=== PATIENT | female | born 1980 | race Caucasian/White ===

== ENCOUNTER → 2017-08-17 | Outpatient (CLI) | payer BC | END | disposition home or self-care (01) | LOC: OIH 11:49 | PROVIDERS: ATTEND Family Medicine | DX: M25.462 Effusion, left knee (principal) | CPT/HCPCS: 73562 ==

== ENCOUNTER → 2025-04-12 | Outpatient (CLI) | payer BC ==
[~2025-04-12] MED LIST: GADOTERATE MEGLUMINE 5 MMOL/10 ML VIAL IV ONE
--- NOTE | 2025-04-14 10:04 | HMCIMG ---
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 TECHNIQUE: Multiplanar multi-sequence MRI of the brain and orbit with and without contrast. COMPARISON: None provided. FINDINGS: Brain: No abnormal parenchymal signal is present. No evidence of acute cortical infarction, hemorrhage, mass or mass effect. The ventricular system is normal in size, shape, and contour. No hydrocephalus. No abnormal extra-axial fluid collection is present. The marrow signal within the skull base and calvarium is intact. The mastoid air cells are clear. Mild to moderate polypoidal mucosal thickening in the left frontal, bilateral anterior ethmoid, right maxillary and left sphenoid sinuses. Orbits: The bilateral eye globes, optic nerves, orbital apex, optic chiasm and optic tracts are within normal limits. The bilateral extraocular muscles and retro-orbital fat are grossly unremarkable. Normal bone marrow signals, no acute fracture. IMPRESSION: 1. No acute intracranial or intra-orbital abnormality or mass. No abnormal postcontrast enhancement. 2. Mild to moderate mucosal thickening in left frontal, bilateral anterior ethmoid, right maxillary and left sphenoid sinuses. /[place]
== END | disposition home or self-care (01) ==
LOC: RAH 14:58
PROVIDERS: ATTEND Optometrist
DX: M47.11 Other spondylosis with myelopathy, occipito-atlanto-axial region (principal)
CPT/HCPCS: 70553; 70543; A9575